=== PATIENT | female | born 1950 | race Hispanic/Latino ===

== ENCOUNTER 2018-10-14 22:51 | Emergency (ER) | payer OTHER ==
[2018-10-14] MEDS ORDERED: KETOROLAC TROMETHAMINE 30MG/ML ONE (23:32)
== END 2018-10-15 00:15 | disposition home or self-care (01) ==
LOC: EDH 22:51
DX: S63.592A Other specified sprain of left wrist, initial encounter (principal); S70.02XA Contusion of left hip, initial encounter; I10 Essential (primary) hypertension; E78.00 Pure hypercholesterolemia, unspecified; Z90.49 Acquired absence of other specified parts of digestive tract; Z88.0 Allergy status to penicillin; W18.2XXA Fall in (into) shower or empty bathtub, initial encounter; Y93.89 Activity, other specified; Y92.098 Other place in other non-institutional residence as the place of occurrence of the external cause; Y99.8 Other external cause status
CPT/HCPCS: 29125; 73130; 73502; 96372; 99283; J1885

== ENCOUNTER → 2020-08-31 | Outpatient (CLI) | payer OTHER | END | disposition home or self-care (01) | LOC: RAH 10:00 | PROVIDERS: ATTEND Family Medicine | DX: R74.8 Abnormal levels of other serum enzymes (principal); Z90.49 Acquired absence of other specified parts of digestive tract | CPT/HCPCS: 76700 ==

== ENCOUNTER 2021-08-29 18:23 | Emergency (ER) | payer OTHER ==
[~2021-08-29] VITALS: Ht 157.5 cm; Wt 72.6 kg
[2021-08-29 18:27] VITALS: BP 144/90
[2021-08-29] MEDS ORDERED: NIRM1TAB PO (19:36)
== END 2021-08-29 19:49 | disposition home or self-care (01) ==
LOC: EDH 18:23
DX: U07.1 COVID-19 (principal); E11.9 Type 2 diabetes mellitus without complications; Z90.49 Acquired absence of other specified parts of digestive tract; Z98.890 Other specified postprocedural states
CPT/HCPCS: 71045; 87635; 87804 ×2; 87880; 99284; C9803

== ENCOUNTER → 2024-04-30 | Outpatient (CLI) | payer OTHER ==
[~2024-04-30] MED LIST: NIRM1TAB PO
[2024-04-30 21:48] VITALS: PULSE 79; RESP 20
[2024-04-30 22:26] VITALS: PULSE 69; RESP 18
[2024-04-30 23:05] VITALS: PULSE 72; RESP 20
[2024-04-30 23:36] VITALS: PULSE 80; RESP 18
[2024-05-01] VITALS (11 sets, daily range): PULSE 74–83; RESP 18–20
== END | disposition home or self-care (01) ==
LOC: SLP 20:41
PROVIDERS: ATTEND Family Medicine
DX: R07.9 Chest pain, unspecified (principal); R06.00 Dyspnea, unspecified; R06.83 Snoring; G47.39 Other sleep apnea
CPT/HCPCS: 95810

== ENCOUNTER → 2024-05-14 | Outpatient (CLI) | payer OTHER ==
[2024-05-14 22:21] VITALS: PULSE 70; RESP 24
[2024-05-14 23:05] VITALS: PULSE 64; RESP 21
[2024-05-14 23:18] VITALS: PULSE 66; RESP 21
[2024-05-14 23:41] VITALS: PULSE 74; RESP 17
[2024-05-14 23:44] VITALS: PULSE 70; RESP 19
[2024-05-14 23:54] VITALS: PULSE 68; RESP 16
[2024-05-15] VITALS (10 sets, daily range): PULSE 61–80; RESP 14–21
== END | disposition home or self-care (01) ==
LOC: SLP 20:37
PROVIDERS: ATTEND Family Medicine
DX: G47.33 Obstructive sleep apnea (adult) (pediatric) (principal)
CPT/HCPCS: 95811